=== PATIENT | male | born 1965 | race Caucasian/White ===

== ENCOUNTER → 2017-04-09 | Day surgery (SDC) | payer BC ==
[~2017-04-09] MED LIST: CRESTOR5 MG PO; HYDROmorphone 2 MG/ML VIAL IV PRN; IV RINGERS,LACTATED 1000ML 1,000 ML IV SCH; LIDOCAINE 1% 1 ML SYRINGE. ID PRN; LIDOCAINE 2% PF Vial for OR 5 ML VIAL. ONE; MORPHINE SULFATE 2 MG/ML DISP.SYRIN. IV PRN; ONDANSETRON PF 4 MG/2 ML VIAL. IV PRN; PROCHLORPERAZINE 10 MG/2 ML VIAL. IV PRN; PROPOFOL 40 ML IV ONE; fentaNYL PF VIAL 100 MCG/2 ML VIAL IV PRN
[2017-04-09 09:38] VITALS: BP 132/76
--- NOTE | 2017-04-10 11:23 | PATHOLOGY ---
PATHOLOGY REPORT * * * * * * * * FINAL DIAGNOSIS: Colon biopsies, ascending colon polyps: - Tubular adenomas. COMMENT: There is no high grade dysplasia or evidence of malignancy. (JPM:pit; 04/10/2017) REPORT ELECTRONICALLY SIGNED BY: Maxx Mock M.D. DATE/TIME: 04/10/2017 11:22 * * * * * * * * GROSS PATHOLOGY: Received in formalin labeled "Nilesh Cavazos, ascending colon polyps," are multiple segments of covarrubias soft tissue measuring from 0.2 up to 0.6 cm in maximum dimension. The specimen is submitted entirely in cassette A1. (JPM; 04/09/17) INITIAL CPT CODE(S): A; 33297 Professional services performed by [facility] [place] [address] Technical services performed by [facility] at [address] [place] [address], [facility] [address], [place] [address]. SPECIMEN(S) RECEIVED: A.Ascending colon polyp CLINICAL HISTORY: Screening PATIENT: NILESH CAVAZOS /AGE: 311/16/1965 (Age: 51) PATIENT #: [id number] ALT CASE #: SPECIMEN COLLECTION DATE: 04/09/2017 SPECIMEN RECEIVED DATE: 04/09/2017 [facility] - [address] [place] [address] - PHONE: [phone] * * * END OF REPORT * * *
== END | disposition home or self-care (01) ==
LOC: ENDOS 07:30
PROVIDERS: ATTEND Internal Medicine Gastroenterology
DX: Z12.11 Encounter for screening for malignant neoplasm of colon (principal); D12.2 Benign neoplasm of ascending colon; K64.0 First degree hemorrhoids; E78.00 Pure hypercholesterolemia, unspecified; Z72.89 Other problems related to lifestyle; Z87.39 Personal history of other diseases of the musculoskeletal system and connective tissue
CPT/HCPCS: 45385; 88305; J2001; J2704